=== PATIENT | male | born 1975 | race Caucasian/White ===

== ENCOUNTER → 2016-04-26 | Outpatient (CLI) | payer OTHER ==
[~2016-04-26] MED LIST: FLEXERIL 1010 MG/TAB PO; NAPROSYN500 MG PO; VENTOLIN0.09 MG IH; ZITHROMAX Z PA250 MG PO; ZYRTEC 10MG10 MG PO
== END ==
LOC: COL.RAD 10:16
DX: M54.2 Cervicalgia (principal); M25.78 Osteophyte, vertebrae

== ENCOUNTER → 2016-05-24 | Outpatient (CLI) | payer OTHER ==
[~2016-05-24] VITALS: Ht 170.2 cm; Wt 80.7 kg
[2016-05-24 10:00] VITALS: BP 123/86; PULSE 93
[2016-05-24 12:01] VITALS: BP 123/86; PULSE 93
== END ==
LOC: COL.RAD 09:41
DX: M54.2 Cervicalgia (principal)
CPT/HCPCS: J1100